=== PATIENT | female | born 1965 | race Caucasian/White ===

== ENCOUNTER → 2017-07-02 | Outpatient (CLI) | payer BC ==
[~2017-07-02] MED LIST: LIDOCAINE 1% 300 MG/30 ML SDV ONE
== END ==
LOC: FIMAGING 14:18
PROVIDERS: ATTEND Internal Medicine Hematology & Oncology
PROC: 0W9B3ZZ Drainage of Left Pleural Cavity, Percutaneous Approach (ICD-10-PCS; principal; 2017-07-02)
DX: J91.0 Malignant pleural effusion (principal)

== ENCOUNTER 2017-07-08 08:27 | Day surgery (SDC) | payer BC ==
[2017-07-08] MEDS ORDERED: PROTAMINE SULFATE 50 MG/5 ML VIAL IVP PRN (09:01)
[2017-07-08] MEDS ORDERED: GLUCAGON HCL 1 MG VIAL IVP PRN (09:01)
[2017-07-08] MEDS ORDERED: fentaNYL 100 MCG/2 ML INJ IVP PRN (09:01)
[2017-07-08] MEDS ORDERED: FLUMAZENIL 0.5 MG/5 ML MDV IVP PRN (09:01)
[2017-07-08] MEDS ORDERED: ALTEPLASE 2 MG VIAL IVP PRN (09:01)
[2017-07-08] MEDS ORDERED: NALOXONE HCL 0.4 MG/ML INJ IVP PRN (09:01)
[2017-07-08] MEDS ORDERED: MIDAZOLAM 2 MG/2 ML VIAL IVP PRN (09:01)
[2017-07-08] MEDS ORDERED: HEPARIN 10,000 UNIT/10 ML MDV (1,000 UNIT/ML) IVP PRN (09:01)
[2017-07-08] MEDS ORDERED: MEPERIDINE 25 MG/ML SYR IVP PRN (09:01)
[2017-07-08] MEDS ORDERED: NS 1,000 ML IV SCH (09:15)
[2017-07-08 09:24] VITALS: PULSE 80
[2017-07-08] MEDS ORDERED: FLUMAZENIL 0.5 MG/5 ML MDV IVP ONE (10:38)
[2017-07-08] MEDS ORDERED: fentaNYL 100 MCG/2 ML INJ ONE (10:38)
[2017-07-08] MEDS ORDERED: MIDAZOLAM 2 MG/2 ML VIAL ONE (10:38)
[2017-07-08] MEDS ORDERED: NALOXONE HCL 0.4 MG/ML INJ ONE (10:38)
--- NOTE | 2017-07-08 12:23 | PDPROPOC ---
Sedation Plan of Care Sedation Plan of Care: vital signs stable, mental status noted, patient educated of risks, benefits, alternatives, patient can tolerate sedation ASA Classification: ASA 2 Planned drugs: fentanyl, midazolam Mallampati Score: Class 2 Mallampati Reference Image: Patient passed 3-3-2 rule?: Yes
--- NOTE | 2017-07-08 12:25 | PDGENHP ---
History & Physical Chief Complaint: LT PLEURAL EFFUSION History of Present Illness: BREAST CA. Pertinent Past, Social, Family History: LUMPECTOMY, TONSILS, FORMER SMOKER. Relevant Physical Exam: NO DISTRESS. Cardiorespiratory Assessment: RRR.
[2017-07-08] MEDS ORDERED: ACETAMINOPHEN 325 MG TAB PO PRN (13:35)
[2017-07-08] MEDS ORDERED: ONDANSETRON 4 MG/2 ML VIAL IVP PRN (13:35)
--- NOTE | 2017-07-08 13:45 | PDRADPN ---
Radiology Procedure Note Date of Procedure: 07/08/17 Radiologist: Natasha Wagner Anesthesia: IV Sedation Pre-op Diagnosis: breast CA, malignant LT effusion Post-op Diagnosis: same Indication: recurrent pleural effusion Procedure: Dillon Chest drain placement Finding(s): 1700 cc drained. Inf/Abcess present in the surg proc area at time of surgery?: No Complications: Pleuritic chest pain from catheter. Will have to see if patient can tolerate this drain.
[2017-07-08 13:53] VITALS: RESP 14
[2017-07-08] MEDS ORDERED: LIDOCAINE 1% 300 MG/30 ML SDV ONE (13:54)
[2017-07-08] MEDS ORDERED: oxyCODONE IR 5 MG TAB PO PRN (13:59)
[2017-07-08] MEDS ORDERED: oxyCODONE IR 5 MG TAB ONE (14:13)
[2017-07-08 15:03] VITALS: TEMP 97.2
[2017-07-08 15:08] VITALS: BP 136/99; O2SAT 99
== END 2017-07-08 15:00 | disposition home or self-care (01) ==
LOC: FIMAGING 08:27
PROVIDERS: ATTEND Radiology Diagnostic Radiology
PROC: 0W9B30Z Drainage of Left Pleural Cavity with Drainage Device, Percutaneous Approach (ICD-10-PCS; principal; 2017-07-08 13:40)
PROC: B34JZZZ Ultrasonography of Left Upper Extremity Arteries (ICD-10-PCS; principal; 2017-07-08 13:40)
DX: C50.411 Malignant neoplasm of upper-outer quadrant of right female breast (principal); J91.0 Malignant pleural effusion
CPT/HCPCS: 32550; C1729; C2617; J2250; J2310; J3010

== ENCOUNTER 2017-07-14 18:24 | Emergency (ER) | payer BC ==
[2017-07-14 18:34] VITALS: TEMP 98.2
[2017-07-14] MEDS ORDERED: NS 500 ML IV ONE (19:04)
--- NOTE | 2017-07-14 19:04 | EDPHY ---
H & P Time Seen by Provider: 07/14/17 18:44 HPI/ROS: CHIEF COMPLAINT: Left-sided chest pain HISTORY OF PRESENT ILLNESS: Patient is a 52-year-old female with metastatic breast cancer. Pain has been ongoing pleural effusion on the left side. Because of this she was getting recurrent pleurocentesis. Last week they placed a indwelling catheter to perform at home pleurocentesis. She performed her for 1st pleurocentesis at home this week. Her next pleurocentesis is scheduled for tomorrow. She has had in in pain at the site of the catheter. This extends up posteriorly along her back. It is slightly worse when she lays back. He she has no fevers or chills. No shortness of breath. REVIEW OF SYSTEMS: My complete review of systems is negative except as mentioned in the HPI. Past Medical/Surgical History: Includes breast cancer, pleural effusion, hypertension Past surgical history: Lumpectomy, left shoulder surgery, left pleural catheter placement Social history: The patient does not smoke Smoking Status: Former smoker Physical Exam: Vitals noted. Afebrile. GENERAL: Well-appearing, in no acute distress, alert. HEENT: Eyes normal to inspection, normal pharynx, no signs of dehydration. NECK: No thyromegaly, no lymphadenopathy, supple. RESPIRATORY: The patient has rales in the left base. Decreased breath sounds left base. CVS: Regular rate and rhythm, no rubs, murmurs, or gallops. ABDOMEN: Soft, nontender, nondistended, no organomegaly. BACK: Normal to inspection, no CVA tenderness. The patient has 2 dressing sites on her left back and left lateral chest. These appear clean dry and intact. No surrounding erythema or warmth. SKIN: Normal color, no rash, warm, dry. No pallor. EXTREMITIES: No pedal edema, no calf tenderness, no Homans sign or cords, no joint swelling. NEURO/PSYCH: Alert and oriented x3, normal mood and affect, normal motor sensory exam. Constitutional: Initial Vital Signs Temperature (C) 36.8 C 07/14/17 18:31 Heart Rate 75 07/14/17 18:31 Respiratory Rate 18 07/14/17 18:31 Blood Pressure 157/99 H 07/14/17 18:31 O2 Sat (%) 93 07/14/17 18:31 O2 Delivery Mode Room Air Allergies/Adverse Reactions: SEASONAL Allergy (Intermediate, Uncoded 07/14/17 18:30) Home Medications: Medication Instructions Recorded Metoprolol Succinate 25 mg PO DAILY 07/05/17 Metoprolol Succinate 25 mg PO DAILY 07/05/17 Sertraline HCl 50 mg PO DAILY 07/05/17 Chemo Med 07/14/17 Oxycodone HCl 07/14/17 Medical Decision Making - Diagnostics Imaging Results: Imaging Impressions Chest X-Ray 07/14/17 19:05 Impression: 1. Pleural catheter left lung base from posterior lateral approach with tip anteromedially with persistent moderate left effusion and atelectasis in the left lower lobe and lingula. ED Course/Re-evaluation: In the emergency department I discussed possible etiologies with the patient and her . I answered all her questions. IV was placed. Laboratory studies were obtained. Chest x-ray was ordered. EKG: Sinus rhythm at 71. Left bundle branch block. CBC and chemistry unremarkable. Chest x-ray: Patient has a pleural catheter the left lung base from posterior lateral approach with tip anterior medially with persistent moderate left effusion and atelectasis in the left lower lobe. I discussed the case with Dr. Moreland. He will arrange close follow-up tomorrow. I discussed the results with the patient and her . I discussed treatment options. She can take pain medication at home and have Dr. Duncan evaluate for catheter need to be removed tomorrow. I also offered the patient admission for pain control. I discussed the pros and cons of each. Patient did not want to have IV placement. She did not want to be admitted to the hospital. Differential Diagnosis: My differential includes but is not limited to pleural irritation, effusion, PE , pneumonia, empyema, ACS, acute FL - Data Points Laboratory Results: Laboratory Results 07/14/17 19:52 07/14/17 19:52 07/14/17 07/14/17 19:52 19:52 WBC 6.62 10^3/uL 10^3/uL (3.80-9.50) RBC 4.12 10^6/uL L 10^6/uL (4.18-5.33) Hgb 13.9 g/dL g/dL (12.6-16.3) Hct 42.1 % % (38.0-47.0) MCV 102.2 fL H fL (81.5-99.8) MCH 33.7 pg pg (27.9-34.1) MCHC 33.0 g/dL g/dL (32.4-36.7) RDW 12.4 % % (11.5-15.2) Plt Count 364 10^3/uL 10^3/uL (150-400) MPV 10.3 fL fL (8.7-11.7) Neut % (Auto) 67.6 % % (39.3-74.2) Lymph % (Auto) 18.7 % % (15.0-45.0) [place] % (Auto) 7.1 % % (4.5-13.0) Eos % (Auto) 5.7 % % (0.6-7.6) Baso % (Auto) 0.6 % % (0.3-1.7) Nucleat RBC Rel Count 0.0 % % (0.0-0.2) Absolute Neuts (auto) 4.47 10^3/uL 10^3/uL (1.70-6.50) Absolute Lymphs (auto) 1.24 10^3/uL 10^3/uL (1.00-3.00) Absolute Monos (auto) 0.47 10^3/uL 10^3/uL (0.30-0.80) Absolute Eos (auto) 0.38 10^3/uL 10^3/uL (0.03-0.40) Absolute Basos (auto) 0.04 10^3/uL 10^3/uL (0.02-0.10) Absolute Nucleated RBC 0.00 10^3/uL 10^3/uL (0-0.01) Immature Gran % 0.3 % % (0.0-1.1) Immature Gran # 0.02 10^3/uL 10^3/uL (0.00-0.10) Sodium 136 mEq/L mEq/L (135-145) Potassium 4.4 mEq/L mEq/L (3.5-5.2) Chloride 99 mEq/L mEq/L (97-110) Carbon Dioxide 26 mEq/l mEq/l (22-31) Anion Gap 11 mEq/L mEq/L (8-16) BUN 11 mg/dL mg/dL (7-23) Creatinine 0.7 mg/dL mg/dL (0.6-1.0) Estimated GFR > 60 Glucose 92 mg/dL mg/dL (70-100) Calcium 9.5 mg/dL mg/dL (8.5-10.4) Troponin I < 0.012 ng/mL ng/mL (0.000-0.034) Medications Given: Discontinued Medications Ibuprofen (Motrin) 600 mg PO EDNOW ONE Stop: 07/14/17 20:39 Last Admin: 07/14/17 20:44 Dose: 600 mg Oxycodone HCl (Oxycodone Ir) 5 mg PO EDNOW ONE Stop: 07/14/17 19:57 Last Admin: 07/14/17 20:04 Dose: 5 mg Departure - Departure Disposition: Home, Routine, Self-Care Clinical Impression: Left sided chest pain Condition: Good Instructions: Chest Pain (ED) Additional Instructions: I spoke with Dr. Moreland. He will arrange close follow-up 3 tomorrow. Make sure you call 1st thing in the morning to arrange the appointment. To control your pain the ED this evening, due the following: Ibuprofen 600 mg orally every 6 hr OxyContin 10 mg orally every 3-4 hours Tylenol 1000mg q 4 hours Referrals: Melvina Carlin [Primary Care Provider] - As per Instructions Ancelmo Duncan MD [Medical Doctor] - 1 day without fail
[2017-07-14] MEDS ORDERED: ONDANSETRON 4 MG/2 ML VIAL IVP ONE (19:05)
--- NOTE | 2017-07-14 19:48 | CPEKG ---
Heart Rate: 71 RR Interval: 845 P-R Interval: 176 QRSD Interval: 122 QT Interval: 440 QTC Interval: 479 P Ramona: 56 QRS Ramona: -29 T Wave Ramona: 45 EKG Severity - ABNORMAL ECG - EKG Impression: SINUS RHYTHM EKG Impression: PROBABLE LEFT ATRIAL ABNORMALITY EKG Impression: LEFT BUNDLE BRANCH BLOCK Electronically Signed By: Deisi Moore 14-Jul-2017 20:58:21
[2017-07-14] MEDS ORDERED: oxyCODONE IR 5 MG TAB PO ONE (19:56)
[2017-07-14 20:02] LABS: PLATELET COUNT 364 10^3/uL (150-400)
[2017-07-14] MEDS ORDERED: IBUPROFEN 600 MG TAB PO ONE (20:38)
[2017-07-14 21:01] VITALS: BP 160/101; PULSE 77; RESP 20; O2SAT 95
== END 2017-07-14 21:04 | disposition home or self-care (01) ==
DX: R07.9 Chest pain, unspecified (principal); I10 Essential (primary) hypertension; Z85.3 Personal history of malignant neoplasm of breast; Z87.891 Personal history of nicotine dependence
CPT/HCPCS: J2270; J2405

== ENCOUNTER 2017-07-19 11:37 | Day surgery (SDC) | payer BC ==
[2017-07-19] MEDS ORDERED: NALOXONE HCL 0.4 MG/ML INJ IVP PRN (11:40)
[2017-07-19] MEDS ORDERED: MIDAZOLAM 2 MG/2 ML VIAL IVP PRN (11:40)
[2017-07-19] MEDS ORDERED: fentaNYL 100 MCG/2 ML INJ IVP PRN (11:40)
[2017-07-19] MEDS ORDERED: MEPERIDINE 25 MG/ML SYR IVP PRN (11:40)
[2017-07-19] MEDS ORDERED: FLUMAZENIL 0.5 MG/5 ML MDV IVP PRN (11:40)
[2017-07-19] MEDS ORDERED: NS 1,000 ML IV SCH (11:45)
[2017-07-19 12:26] VITALS: PULSE 76
--- NOTE | 2017-07-19 14:16 | PDPROPOC ---
Sedation Plan of Care Sedation Plan of Care: vital signs stable, mental status noted, patient educated of risks, benefits, alternatives, patient can tolerate sedation ASA Classification: ASA 3 Planned drugs: fentanyl, midazolam Mallampati Score: Class 2 Mallampati Reference Image: Patient passed 3-3-2 rule?: Yes
--- NOTE | 2017-07-19 14:20 | PDGENHP ---
History & Physical Chief Complaint: LT pleurex catheter causing pain History of Present Illness: catheter placed for malignant effusion. incision pain is improved. catheter causing pain wih movement. Pertinent Past, Social, Family History: breast ca; s/p lumpectomy. Relevant Physical Exam: site is clean without infection or irretation. Cardiorespiratory Assessment: rrr, cta
[2017-07-19] MEDS ORDERED: MIDAZOLAM 2 MG/2 ML VIAL ONE (14:48)
[2017-07-19] MEDS ORDERED: fentaNYL 100 MCG/2 ML INJ ONE (14:48)
[2017-07-19 15:47] VITALS: RESP 16
[2017-07-19] MEDS ORDERED: ONDANSETRON 4 MG/2 ML VIAL IVP PRN (17:03)
[2017-07-19] MEDS ORDERED: ACETAMINOPHEN 325 MG TAB PO PRN (17:03)
[2017-07-19] MEDS ORDERED: HYDROCODONE/APAP 10/325 TAB PO PRN (17:04)
[2017-07-19] MEDS ORDERED: HYDROCODONE/APAP 10/325 TAB ONE (17:08)
[2017-07-19 17:15] VITALS: BP 131/94
[2017-07-19 20:44] VITALS: O2SAT 93
[2017-07-19 20:53] VITALS: TEMP 98.2
== END 2017-07-19 17:36 | disposition home or self-care (01) ==
LOC: FIMAGING 11:37
PROVIDERS: ATTEND Radiology Diagnostic Radiology
PROC: 0W9B3ZZ Drainage of Left Pleural Cavity, Percutaneous Approach (ICD-10-PCS; principal; 2017-07-19 15:35)
PROC: 0WPB30Z Removal of Drainage Device from Left Pleural Cavity, Percutaneous Approach (ICD-10-PCS; principal; 2017-07-19 15:35)
DX: T85.848A Pain due to other internal prosthetic devices, implants and grafts, initial encounter (principal); J90 Pleural effusion, not elsewhere classified; Z85.3 Personal history of malignant neoplasm of breast; Z87.891 Personal history of nicotine dependence
CPT/HCPCS: 32556; C1729; C1769; C2617; J2250; J2310; J3010

== ENCOUNTER → 2017-08-16 | Outpatient (CLI) | payer BC | LOC: FIMAGING 16:48 | PROVIDERS: ATTEND Internal Medicine Hematology & Oncology | DX: J90 Pleural effusion, not elsewhere classified (principal); Z86.711 Personal history of pulmonary embolism ==

== ENCOUNTER → 2017-08-18 | Day surgery (SDC) | payer BC | END | disposition home or self-care (01) | LOC: FIMAGING 14:12 | PROVIDERS: ATTEND Radiology Diagnostic Radiology | PROC: BB12ZZZ Fluoroscopy of Right Lung (ICD-10-PCS; principal; 2017-08-18) | DX: Z46.82 Encounter for fitting and adjustment of non-vascular catheter (principal) ==

== ENCOUNTER → 2017-09-07 | Outpatient (CLI) | payer BC ==
[~2017-09-07] MED LIST changes: +ALTEPLASE 2 MG VIAL ONE; +ALTEPLASE IV ONE; -LIDOCAINE 1% 300 MG/30 ML SDV ONE; +NS IV ONE
== END ==
LOC: FIMAGING 13:41
PROVIDERS: ATTEND Internal Medicine Hematology & Oncology
DX: J90 Pleural effusion, not elsewhere classified (principal); Z85.118 Personal history of other malignant neoplasm of bronchus and lung
CPT/HCPCS: J2997

== ENCOUNTER → 2017-09-17 | Outpatient (CLI) | payer BC ==
[~2017-09-17] MED LIST changes: -ALTEPLASE 2 MG VIAL ONE; -ALTEPLASE IV ONE; +IOPAMIDOL (ISOVUE 370) 100 ML BTL IV ONE; -NS IV ONE
== END ==
LOC: FIMAGING 07:52
PROVIDERS: ATTEND Internal Medicine Hematology & Oncology
DX: C50.919 Malignant neoplasm of unspecified site of unspecified female breast (principal); J91.0 Malignant pleural effusion
CPT/HCPCS: Q9967

== ENCOUNTER → 2017-10-21 | Outpatient (CLI) | payer BC | LOC: FIMAGING 13:02 | PROVIDERS: ATTEND Nurse Practitioner | DX: R07.89 Other chest pain (principal) | CPT/HCPCS: J1642; Q9967 ==

== ENCOUNTER 2017-11-10 13:34 | Outpatient (CLI) | payer BC ==
[2017-11-10] MEDS ORDERED: diphenhydrAMINE 25 MG CAP PO ONE ×2 (14:08→14:15)
[2017-11-10] MEDS ORDERED: ACETAMINOPHEN 325 MG TAB ONE (14:09)
[2017-11-10] MEDS ORDERED: ACETAMINOPHEN 325 MG TAB PO ONE (14:15)
[2017-11-10] MEDS ORDERED: PHENYLEPHRINE HCL 100 MCG/ML SYR ONE (16:54)
== END 2017-11-10 17:32 | disposition home or self-care (01) ==
LOC: FOBOP 13:34
PROVIDERS: ATTEND Internal Medicine Hematology & Oncology
PROC: 30233N1 Transfusion of Nonautologous Red Blood Cells into Peripheral Vein, Percutaneous Approach (ICD-10-PCS; principal; 2017-11-10)
DX: C50.919 Malignant neoplasm of unspecified site of unspecified female breast (principal)
CPT/HCPCS: 36430; P9016; J1642; J2370

== ENCOUNTER → 2017-12-15 | Outpatient (CLI) | payer BC | DX: R14.0 Abdominal distension (gaseous) (principal); R10.9 Unspecified abdominal pain; Z85.3 Personal history of malignant neoplasm of breast ==